=== PATIENT | female | born 1980 | race Caucasian/White ===

== ENCOUNTER → 2018-06-15 10:57 | Outpatient (CLI) | payer OTHER, SELFPAY ==
--- NOTE | 2018-06-15 11:03 | US_ITS ---
US breast RT complete, US breast LT complete Ordering Physician: [facility] Patient Age: 37 years: Female HISTORY: ITS.REASON: SCARLET BREAST CYST areas palpated by doctor bilateral TECHNIQUE: Ultrasound both right and left breast at the axillary survey COMPARISON :No previous studies ========= RIGHT BREAST ULTRASOUND including axillary survey Survey of the entire right breast including axilla reveals no cyst nor solid nodule. No architectural distortion. No areas of concern Moderately dense breast pattern observed.A few Minimal benign axillary lymph nodes observed ======== LEFT BREAST ULTRASOUND including axillary survey Survey of the entire left breast including axilla reveals no cyst nor solid nodule. No architectural distortion. But no areas of concern Moderately dense breast pattern observed. A few Minimal benign axillary lymph nodes observed IMPRESSION: Ultrasound survey of both breasts performed and reveal No Areas of Concern. No cyst or solid nodule no architectural distortion evident either breast BI-RADS Category: 1 Negative RECOMMENDED FOLLOW-UP: 1YR - 1 YEAR FOLLOW-UP (Only ultrasound performed today. No mammography and no previous mammograms... May want to consider obtained baseline mammography within the next year in this 37-year-old particularly if concern persists clinically) (A letter has been sent to the patient regarding results of the study.)
== END ==
PROVIDERS: PCP Internal Medicine Adolescent Medicine; Visit Provider Internal Medicine Adolescent Medicine
DX: N63.10 Unspecified lump in the right breast, unspecified quadrant (principal); N63.20 Unspecified lump in the left breast, unspecified quadrant
CPT/HCPCS: 76641

== ENCOUNTER → 2018-07-05 09:01 | Outpatient (CLI) | payer OTHER, SELFPAY ==
--- NOTE | 2018-07-05 09:02 | MM_ITS ---
MM Dig screening mamm BI w/CAD CAD Screening COMPARISON: None, this is baseline INDICATION: There is no personal or family history of breast cancer TECHNIQUE: Standard CC and MLO images were obtained. R2 CAD reviewed. FINDINGS: Scattered fibroglandular densities are seen throughout both breast. There is no suspicious lesion and there are no suspicious microcalcifications. There is a mole marker right breast. IMPRESSION: Fibrofatty parenchyma no suspicious lesion seen BI-RADS Category: 1 Negative RECOMMENDED FOLLOW-UP: 1YR - 1 YEAR FOLLOW-UP (A letter has been sent to the patient regarding results of the study.)
== END ==
PROVIDERS: PCP Surgery; Visit Provider Surgery
DX: Z12.31 Encounter for screening mammogram for malignant neoplasm of breast (principal); N63.0 Unspecified lump in unspecified breast
CPT/HCPCS: 77067

== ENCOUNTER → 2019-04-26 10:46 | Outpatient (CLI) | payer BC, SELFPAY ==
--- NOTE | 2019-04-26 10:49 | US_ITS ---
PROCEDURE: US THYROID CLINICAL INDICATION: HYPERCALCEMIA The dysphagia COMPARISON: No exams were available for comparison FINDINGS: Right lobe: 4.1 x 1.0 x 1.8 cm. There is a 5 mm slightly hypoechoic nodule in the upper pole. Posterior to the right lower pole there is a 1 x 0.4 cm area of decreased echogenicity which may be due to a parathyroid gland. Left lobe: 3.3 x 0.9 x 1.5 cm. No nodule or other significant anomaly. Isthmus: 3 mm in thickness Additional findings: IMPRESSION: Benign-appearing nodule in the upper pole of the right lobe of the thyroid gland at 5 mm. Possible mildly enlarged parathyroid gland posterior to the right thyroid lobe inferiorly Dictated by: Tray Zimmerman MD 04/26/2019 16:31 Electronically signed by Tray Zimmerman MD in [place] 04/26/2019 16:31
== END ==
PROVIDERS: PCP Nurse Practitioner Family; Visit Provider Nurse Practitioner Family
DX: E83.52 Hypercalcemia (principal)
CPT/HCPCS: 76536

== ENCOUNTER → 2019-06-08 09:29 | Outpatient (CLI) | payer BC, SELFPAY ==
--- NOTE | 2019-06-08 09:34 | FL_ITS ---
PROCEDURE: FL BARIUM SWALLOW CLINICAL INDICATION: DYSPHAGIA COMPARISON: No exams were available for comparison TECHNIQUE: In the upright position the patient was observed to swallow barium in both the AP and lateral view. The cervical esophagus was examined under fluoroscopy with images obtained. The patient was then placed prone in the right anterior oblique position and was observed to swallow barium with Valsalva technique . FLUOROSCOPY TIME: 48 seconds FINDINGS: There was no evidence of aspiration. There was normal peristalsis. No filling defects or mucosal abnormalities. No masses or strictures. No hiatal hernia. No reflux. There was delay in initiation of the swallowing mechanism. IMPRESSION: Delay in initiation of the swallowing mechanism otherwise negative barium swallow Dictated by: Tray Zimmerman MD 06/08/2019 18:15 Electronically signed by Tray Zimmerman MD in [place] 06/08/2019 18:15
== END ==
LOC: RAD 09:32
PROVIDERS: PCP Nurse Practitioner Family; Visit Provider Nurse Practitioner Family
DX: R13.10 Dysphagia, unspecified (principal)
CPT/HCPCS: 74220

== ENCOUNTER 2024-03-17 08:54 | Emergency (ER) | payer BC, SELFPAY ==
[2024-03-17] VITALS (9 sets, daily range): BP systolic 106–164; BP diastolic 71–104; PULSE 59–91; RESP 18–22; TEMP 36.7–36.8; O2SAT 97–99; BMI 23.3
--- NOTE | 2024-03-17 09:02 | ECG_ITS ---
APPROVED REPORT Exam: Resting ECG HR:81 bpm ECG Measurements Heart Rate 81 AXES UT 148 P 76 QRSd 87 QRS 64 QT 361 T 67 QTc 399 Conclusion Sinus rhythm Electronically signed by : KATELYN ROSARIO, 03/17/2024 15:10:50
--- NOTE | 2024-03-17 09:11 | XR_ITS ---
PROCEDURE INFORMATION: Exam: XR Chest Exam date and time: 03/17/2024 9:37 AM Age: 43 years old Clinical indication: Pain; Chest pressure; Additional info: Palpiations, SOA TECHNIQUE: Imaging protocol: Radiologic exam of the chest. Views: 1 view. COMPARISON: No relevant prior studies available. FINDINGS: Lungs: Unremarkable. No consolidation. Pleural spaces: Unremarkable. No pleural effusion. No pneumothorax. Heart/Mediastinum: Unremarkable. No cardiomegaly. Bones/joints: Unremarkable. IMPRESSION: No acute cardiopulmonary process.
[2024-03-17] MEDS: LACTATED RINGERS 1000ML 1,000 ML 999 ML IV (09:18)
--- NOTE | 2024-03-17 09:20 | ED_ITS ---
Discharge Plan Disposition Patient Disposition: Home, Self-Care Chief Complaint: Arrhythmia/Palpitations Prescriptions Prescriptions: No Action norgestimate-ethinyl estradiol [Ortho Tri-Cyclen LO (28)] 0.18/0.215/0.25 mg- 25 mcg tablet 1 tab PO DAILY omeprazole magnesium 20 MG tablet,delayed release (DR/EC) 20 mg PO DAILY Referrals Follow up/Referrals: Katelyn Flood [Primary Care Provider] - See instructions Zechariah Ayala MD [Staff Physician] - See instructions Activity Restrictions/Add. Instructions Additional Instructions/Restrictions: Follow-up with cardiology and your family doctor regarding this visit to the emergency department within 48 hours to ensure improvement. If you have any worsening of your condition or any other concerning signs or symptoms, return to the emergency department or your primary care doctor for further evaluation. Clinical Impressions Clinical Impression: Heart palpitations, Lightheadedness Print Language Print Language: Argentine Discharge ED Provider: Dmitry Aranda General Adult HPI General Chief complaint: Arrhythmia/Palpitations Stated complaint: soa, dizzy, fast heart rate Time Seen by Provider: 03/17/24 08:57 Mode of Arrival: Ambulatory Source of Information: Patient Limitations: No Limitations Description of Symptoms (Recalled from ER Triage Doc. by RN): heart palpatations,short of breath,anxious History of Present Illness HPI narrative: Please note that above description of symptoms, in this electronic medical record under categorization of recalled from ER triage doctor by RN are reflective of an initial nursing assessment, however, is not reflective of my full history and physical exam that was personally taken and clarified. Consequentially, this preceding description of symptoms, which may include the patient's categorized chief complaint in the EMR, do not reflect my personal clinical impression, and the ultimate description of history of present illness and patient stated complaints should be deferred to this section of the note. Unless stated otherwise or congruent with this section of the note, additional signs, symptoms, or incongruence should be interpreted as inaccurate with my clinical impression. Related Data Home Medications ?Medication ?Instructions ?Recorded ?Confirmed norgestimate 0.18 mg/0.215 mg/0.25 1 tab PO DAILY control 06/26/18 07/14/18 mg-ethinyl estradiol 25 mcg tablet (Ortho Tri-Cyclen LO (28)) omeprazole magnesium 20 mg 20 mg PO DAILY Supplement 05/07/19 05/07/19 tablet,delayed release Allergies Allergy/AdvReac Type Severity Reaction Status Date / Time Penicillins Allergy Unknown Verified 05/07/19 12:46 promethazine [From Phenergan] Allergy Unknown Verified 05/07/19 12:46 PFSH [facility] Disclaimer: The information contained in this section may have been updated after the patient was seen, as this information can be updated by other users. Social History Smoking Status: Current every day smoker tobacco type: cigarettes packs per day: 1 alcohol intake: never substance use type: denies use current occupational status: employed Travel in the last 8 weeks: None household members: spouse and children housing: apartment current occupational exposures/hazards: No caffeine: Yes ROS Obtained: Yes All systems reviewed & no additional complaints except as documented Physical Exam General General appearance: alert and anxious (Mildly) Head Head exam: atraumatic and normocephalic Eye Eye exam: Present normal appearance, PERRL and EOMI Neck Neck exam: Present normal inspection, full ROM and trachea midline Respiratory Respiratory exam: Present normal lung sounds bilaterally; Absent respiratory distress, wheezes, stridor, accessory muscle use or prolonged expiratory phase Cardiovascular Cardiovascular exam: Present regular rate, normal rhythm and other (Pulses equal symmetric in upper and lower extremities) Abdominal Exam Abdominal exam: Present soft; Absent distention, tenderness, guarding, rebound, rigidity or pulsatile mass Extremities Exam Extremities exam: Present other (Pulses equal and symmetric in uppers and lowers); Absent edema Neurological Exam Neurological exam: Present alert, oriented X3, CN II-XII intact and normal gait; Absent motor sensory deficit Skin Skin exam: Present warm and dry; Absent diaphoresis or erythema Medical Decision Making Medical Records Medical records reviewed: Yes I reviewed the patient's medical records. Screening: Per USPSTF and CDC recommendations, given the prevalence of disease in our region, it is our hospital?s policy to screen for HIV and viral Hepatitis for all patients aged 18 and over and those with ongoing risk factors. Markell Inquiry Pt receiving controlled substance: No Markell was queried for this patient: No Vital Signs: 03/17/24 08:56 03/17/24 08:59 03/17/24 09:00 Temperature 98.1 F Temperature Source Oral Pulse Rate 84 88 Pulse Rate [Right] 91 H Respiratory Rate 20 Blood Pressure 164/104 H 138/97 H Blood Pressure [Right Arm] 138/97 H Blood Pressure Mean Blood Pressure Mean [Right Arm] 110 02 Sat by Pulse Oximetry 98 99 99 Oxygen Delivery Method Room Air 03/17/24 09:15 03/17/24 09:30 03/17/24 10:00 Temperature Temperature Source Pulse Rate 71 65 71 Pulse Rate [Right] Respiratory Rate 20 22 Blood Pressure 108/78 L 123/81 Blood Pressure [Right Arm] Blood Pressure Mean Blood Pressure Mean [Right Arm] 02 Sat by Pulse Oximetry 99 99 99 Oxygen Delivery Method Room Air Room Air 03/17/24 10:30 03/17/24 11:00 Temperature Temperature Source Pulse Rate 60 59 L Pulse Rate [Right] Respiratory Rate 20 20 Blood Pressure 117/79 106/71 L Blood Pressure [Right Arm] Blood Pressure Mean 82 Blood Pressure Mean [Right Arm] 02 Sat by Pulse Oximetry 99 98 Oxygen Delivery Method Room Air Lab Data Lab Results 03/17/24 09:01: WBC 9.4, RBC 4.86, Hgb 15.2, Hct 45.9, MCV 94.5, MCH 31.3 H, MCHC 33.2, RDW 13.1, Plt Count 212, MPV 8.7, Neut % (Auto) 73.0, Lymph % (Auto) 20.2, Summers % (Auto) 5.4, Eos % (Auto) 0.7, Baso % (Auto) 0.5, Neut # (Auto) 6.9, Lymph # (Auto) 1.9, Summers # (Auto) 0.5, Eos # (Auto) 0.1, Baso # (Auto) 0.1, D- Dimer 0.33, Sodium 136, Potassium 4.0, Chloride 107, Carbon Dioxide 26, Anion Gap 7.0, BUN 11, Creatinine 0.80, Estimated Creat Clear 93, Estimated GFR 79, Est GFR ( Amer) 96, Glucose 142 H, Calcium 9.1, Magnesium 1.9, Total Bilirubin 0.9, AST 25, ALT 17, Alkaline Phosphatase 54, Troponin I < 0.01, NT-Pro-B Natriuret Pep 84.8, Total Protein 6.9, Albumin 4.4, Globulin 2.5, Albumin/Globulin Ratio 1.8, TSH 1.42, Thyroxine (T4) 7.1, Serum HCG, Qual Negative, PTH Intact 83.7 H, HIV 1&2 Antibody Rapid Nonreactive 09/28/24 10:25: Urine Opiates Screen Negative, Urine Methadone Screen Negative, Ur Barbituates Screen Negative, Ur Phencyclidine Scrn Negative, Ur Amphetamines Screen Negative, U Benzodiazepines Scrn Negative, Urine Cocaine Screen Negative, U Marijuana (THC) Screen Negative 03/17/24 09:01 03/17/24 09:01 Orders (Tests/Meds): ED MEDICATIONS Discontinued Medications Generic Name Dose Route Start Last Admin Trade Name Sinan PRN Reason Stop Dose Admin Lactated Ringer's 1,000 mls @ 999 mls/hr 03/17/24 09:14 03/17/24 09:18 Lactated Ringer's 1000 Ml Bag IV 03/17/24 10:14 999 mls/hr .Q1H1M ONE Administration ORDERS Category Date Time Status CXR --portable [XR chest portable] Stat Exams 03/17/24 09:11 Completed CBC w/Auto Diff [Complete Blood Count Auto Diff] Stat Lab 03/17/24 09:01 Completed CMP [Comprehensive Metabolic Panel] Stat Lab 03/17/24 09:01 Completed D-Dimer Stat Lab 03/17/24 09:01 Completed HIV (1&2) Antibody Rapid Stat Lab 03/17/24 09:01 Completed Hep C Ab with Reflex to RNA Stat Lab 03/17/24 09:01 Received Intact Parathyroid Hormone Stat Lab 03/17/24 09:01 Completed Magnesium Stat Lab 03/17/24 09:01 Completed NT Pro Brain Natriuretic Pep. Stat Lab 03/17/24 09:01 Completed Serum [HCG Qualitative, Serum] Stat Lab 03/17/24 09:01 Completed T4 (Thyroxine) Stat Lab 03/17/24 09:01 Completed TSH [Thyroid Stimulating Hormone] Stat Lab 03/17/24 09:01 Completed Trop I [Troponin I] Stat Lab 03/17/24 09:01 Completed Troponin I Q3H Lab 03/17/24 12:15 Ordered Troponin I Q3H Lab 03/17/24 15:15 Ordered UDS [Drug Screen,Urine] Stat Lab 03/17/24 10:25 Completed Medical Decision Narrative: 43-year-old female history of smoking, recently quit currently on nicotine patch 21 mg daily, anxiety, abnormal uterine bleeding currently on combined OCP presenting with palpitations. Patient states that she has had palpitations for the past 2 days with associated shortness of breath. States that minimal exertion make shortness of breath and palpitations worse. Nonpositional. Not associated with cough, fevers, chills, chest pain, nausea or vomiting. She states that she stopped smoking about 2 days ago and has been using 21 mg patches since that time. She also states that she had leftover Lexapro from the past, which she started taking yesterday to see if it would help. Denies any other medication changes, travel, recent drug exposures, significant changes, or any other relevant history. Recently went to outside ED, full workup negative. Coming for second opinion. History was obtained via conversation with patient. On arrival, patient hemodynamically stable, alert, oriented x4, appropriate, GCS 15, moving all extremities spontaneously, pupils equal and reactive to light. Full physical exam performed and significant for mildly anxious appearing female who is in no acute distress. Speaking in full sentences, phonating appropriately. Vital signs all stable. Patient nontachycardic. Lungs are clear to auscultation bilaterally. Cardiac exam within normal limits without murmurs gallops or rubs, decreased heart sounds, etc. No lower extremity edema, pulses equal and symmetric in upper and lower extremities. Differential includes anxiety, metabolic abnormality, thyroid versus parathyroid abnormality, dehydration, acute blood loss anemia/symptomatic anemia, PE, ACS, IA, pneumothorax, intoxication, withdrawal, among other. Patient placed on continuous cardiac monitoring and continuous pulse ox with initial blood pressure 138/97, heart rate 91, saturation 98% on room air. Independent interpretation of EKG shows sinus rhythm with normal axis. No ST or T wave changes concerning for acute ischemia. MD 148, QRS 87, QTc 399. Patient was given 1 L fluid bolus for symptomatic management and correction of underlying abnormalities. Workup independently interpreted and significant for nonactionable CBC with normal hemoglobin. Dimer negative. Chemistry normal. Patient's troponin negative and BNP negative. TSH and T4 normal. PTH mildly elevated at 84, urine hCG negative. Urine tox screen negative. On independent interpretation of imaging, no acute cardiopulmonary space disease on chest x- ray. See radiology read for full review of final results. Heart score 0. Because patient at baseline without signs or symptoms of clinical decompensation, deemed appropriate for discharge. Results were relayed to patient who voiced understanding and were agreeable to outpatient management and follow up. I discussed my clinical impression with patient and answered all questions. At this time, the evidence for any other entities in the differential is insufficient to warrant any further testing or ED observation. This was explained as well. Advisory was given that persistent or worsening symptoms require further evaluation. I confirmed the understanding of this discussion. 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 Electronic cigarette packing machine operator of the spoken language may permit errors. Although I have reviewed the note, some errors may still exist. Critical Care Critical Care Time Critical Care Time: No
[2024-03-17 09:25] LABS: Basophils # 0.1 K/mm3 (0-0.2); Basophils % 0.5 % (0.1-2.0); Eosinophils # 0.1 K/mm3 (0.0-0.4); Eosinophils % 0.7 % (0.1-12.0); Hematocrit 45.9 % (37.0-47.0); Hemoglobin 15.2 g/dL (12.2-16.2); Lymphocytes # 1.9 K/mm3 (0.7-4.5); Lymphocytes % 20.2 % (10-50); Mean Corpuscular HGB Conc 33.2 g/dL (31.8-35.4); Mean Corpuscular Hemoglobin 31.3 pg (27.0-31.2); Mean Corpuscular Volume 94.5 fl (81-99); Mean Platelet Volume 8.7 fl (7.4-10.4); Monocytes # 0.5 K/mm3 (0.1-1.0); Monocytes % 5.4 % (1.7-9.3); Neutrophils # 6.9 K/mm3 (1.8-7.8); Platelet Count 212 K/mm3 (142-424); Red Blood Count 4.86 M/mm3 (4.20-5.40); Red Cell Distribution Width 13.1 % (11.5-17.5); White Blood Count 9.4 K/mm3 (4.8-10.8)
[2024-03-17 09:33] LABS: HCG Qualitative, Serum Negative (Negative)
[2024-03-17 09:35] LABS: Magnesium 1.9 mg/dl (1.6-2.3)
[2024-03-17 09:36] LABS: Alanine Aminotransferase 17 U/L (12-78); Albumin Level 4.4 g/dl (3.5-5.0); Albumin/Globulin Ratio 1.8 (1.1-1.8); Alkaline Phosphatase 54 U/L (38-126); Aspartate Amino Transferase 25 U/L (14-36); Bilirubin,Total 0.9 mg/dl (0.2-1.3); Blood Urea Nitrogen 11 mg/dl (7-17); Calcium 9.1 mg/dl (8.4-10.2); Carbon Dioxide 26 mmol/L (22.0-30.0); Chloride 107 mmol/L (98-107); Creatinine Clearance Estimated 93 mL/min (50-200); Estimated Glomerular Filt Rate 79 ml/min (>60); GFR (African American) 96 ML/MIN (>60); Globulin 2.5 g/dL (1.3-3.2); Glucose 142 mg/dl (74-100); Sodium 136 mmol/L (136-145); Total Protein,Serum 6.9 g/dl (6.3-8.2)
[2024-03-17 09:41] LABS: D-Dimer 0.33 ug/mL (0.0-0.5)
[2024-03-17 09:47] LABS: NT Pro Brain Natriuretic Pep. 84.8 pg/mL (0-125)
[2024-03-17 09:48] LABS: Intact Parathyroid Hormone 83.7 pg/mL (7.5-53.5)
[2024-03-17 09:52] LABS: T4 (Thyroxine) 7.1 ug/dl (5.53-11.0)
[2024-03-17 10:06] LABS: Thyroid Stimulating Hormone 1.42 uIU/mL (0.465-4.68)
[2024-03-17 10:20] LABS: Troponin I < 0.01 ng/ml (0.00-0.034)
--- NOTE | 2024-03-17 10:32 | PC.NURSE ---
rounded on pt, warm blanket and pillow provided. no needs at this time. call light within reach
[2024-03-17 10:39] LABS: HIV (1&2) Antibody Rapid NONREACTIVE (NONREACTIVE)
[2024-03-17 11:04] LABS: Barbiturates Screen,Urine Negative ng/ml (<200)
[2024-03-17 11:05] LABS: Benzodiazepines Screen,Urine Negative ng/ml (<200)
[2024-03-17 11:06] LABS: Amphetamine/Metha Screen,Urine Negative ng/ml (<1000); Cannabinoid Screen,Urine Negative ng/ml (<50)
[2024-03-17 11:07] LABS: Cocaine Screen,Urine Negative ng/ml (<300); Methadone Screen,Urine Negative ng/ml (<300)
[2024-03-17 11:08] LABS: Opiate Screen,Urine Negative ng/ml (<300)
[2024-03-17 11:09] LABS: Phencyclidine Screen,Urine Negative ng/ml (<25)
--- NOTE | 2024-03-17 11:46 | PC.NURSE ---
DR ROSARIO AT BEDSIDE TO UPDATE PT
[2024-03-18 08:11] LABS: HCV Ab Non Reactive (Non Reactive)
== END 2024-03-17 11:53 | disposition home or self-care (01) ==
PROVIDERS: Emergency Provider Emergency Medicine; PCP Nurse Practitioner Family
DX: R00.2 Palpitations (principal); R42 Dizziness and giddiness; F41.9 Anxiety disorder, unspecified
CPT/HCPCS: 71045; 80050; 80053; 80307; 83735; 83880; 83970; 84436; 84443; 84484; 84703; 85025; 85378; 86803; 87389; 93005; 96360; 99284; J7120

== ENCOUNTER 2024-03-26 09:53 | Outpatient (CLI) | payer BC, SELFPAY | END 2024-03-26 23:59 | disposition home or self-care (01) | LOC: RT 09:54 | PROVIDERS: PCP Nurse Practitioner Family; Visit Provider Nurse Practitioner Family | DX: R00.2 Palpitations (principal); R06.09 Other forms of dyspnea; R07.89 Other chest pain; R94.31 Abnormal electrocardiogram [ECG] [EKG] | CPT/HCPCS: 93270 ==

== ENCOUNTER 2024-04-03 09:52 | Outpatient (CLI) | payer BC, SELFPAY ==
--- NOTE | 2024-04-03 12:06 | CA_ITS ---
APPROVED REPORT Exam: Exercise Treadmill Technologist: Amaris Mixon Ht: 5 ft 5 in Wt: 140 lbs BSA: 1.70 m2 HR: 72 bpm BP: 140/64 mmHg Indications: Chest pain Stress Test Details Test: Castro HR Resting HR: 72 bpm Max Heart Rate (APMHR): 179 bpm Max HR Achieved: 170 bpm Target HR (85% APMHR): 152 bpm % of APMHR: 95 Recovery HR: 100 bpm BP Resting BP: 140.0/64.0 mmHg Max BP: 160.0/80.0 mmHg Recovery BP: 146.0/69.0 mmHg ECG Resting ECG: Sinus rhythm Stress EC.[address] depression Arrhythmia: None Clinical Exercise duration: 10:00 min Highest Stage Achieved: Exercise capacity: 12.8 METs Stress ECG Conclusion Symptoms: Dyspnea, leg fatigue Arrhythmias/Ectopy: PVC ST-T Changes: 0.[address] depression Conclusion: Normal EKG response to exercise. If clinical symptoms persist, further evaluation with alternative imaging modalities is recommended, in the setting of being intermediate (i.e. now low) likelihood of CAD due to age. Test Summary REST . . . . . . . Resting REST 01:54 0.0 0.0 72 . 140/ 64 . . Stage 1 01:00 10.0 1.7 100 . . . . Stage 1 02:00 10.0 1.7 115 . . . . Stage 1 03:00 10.0 1.7 117 . 150/ 70 . . Stage 2 01:00 12.0 2.5 130 . . . . Stage 2 02:00 12.0 2.5 138 . . . . Stage 2 03:00 12.0 2.5 140 . 160/ 80 . . Stage 3 01:00 14.0 3.4 149 . . . . Stage 3 02:00 14.0 3.4 155 . . . . Stage 3 03:00 14.0 3.4 157 . 160/ 80 . . Stage 4 01:00 16.0 4.2 169 . . . Stop exercise at 10:00 RECOVERY 01:00 0.0 0.0 155 . 160/ 60 . . RECOVERY 02:00 0.0 0.0 132 . 160/ 60 . . RECOVERY 03:00 0.0 0.0 111 . 151/ 66 . . RECOVERY 04:00 0.0 0.0 108 . 145/ 73 . . RECOVERY 05:00 0.0 0.0 100 . 145/ 73 . . RECOVERY 05:50 0.0 0.0 100 . 146/ 69 . . Electronically signed by : Ciara Pratt MD 04/12/2024 13:07:16
== END 2024-04-03 23:59 | disposition home or self-care (01) ==
LOC: RT 09:54
PROVIDERS: PCP Nurse Practitioner Family; Visit Provider Nurse Practitioner Family
DX: R06.09 Other forms of dyspnea (principal); R07.89 Other chest pain; R00.2 Palpitations; R94.31 Abnormal electrocardiogram [ECG] [EKG]
CPT/HCPCS: 93017; 93018

== ENCOUNTER 2024-04-06 09:28 | Outpatient (CLI) | payer BC, SELFPAY ==
--- NOTE | 2024-04-06 09:30 | CA_ITS ---
APPROVED REPORT EXAM: Comprehensive 2D, Doppler, and color-flow Echocardiogram Material Control Associate: Mitzi Fletcher RDCS Ht: 5 ft 5 in Wt: 140lbs BSA: 1.70 BP: 132/77 mmHg Indications: CP,ABN EKG,AMOKER,CAMEJO M-Mode Dimensions RVDd 1.92 cm (0.9-2.6) LA Diam 3.17 cm (1.9-4.0) LVDd 4.86 cm (3.5-5.7) LVDs 3.59 cm (3.5-5.7) IVSd 0.59 cm (0.6-1.1) PWd 0.62 cm (0.6-1.1) EF (Teich) 51.10% FS 26.10% EDV (Teich) 110.70 mL ESV (Teich) 54.10 mL LV Diastology E Decel Time 233 (160-240 msec) E/A Ratio 1.4 Mitral Valve MV E Max Dong. 69.0 (40-130 cm/s) MV A Velocity 48.0 (40-130 cm/s) E/A Ratio 1.42 MV PHT 68.0 ms Left Ventricle The left ventricle is normal size. The left ventricular systolic function is normal. The left ventricular ejection fraction is within the normal range. There is normal left ventricular wall thickness. There is normal LV segmental wall motion. The left ventricular diastolic function is normal. LVEF is 55%. Right Ventricle The right ventricle is normal size. The right ventricular systolic function is normal. Atria The left atrium size is normal. The right atrium size is normal. The interatrial septum is not evaluated with color Doppler in the study. Aortic Valve The aortic valve opens well. There is no aortic valvular stenosis. No aortic regurgitation is present. Mitral Valve The mitral valve is normal in structure. No evidence of mitral valve stenosis. Trace mitral regurgitation. Tricuspid Valve The mitral valve leaflets are thin and pliable. Trace tricuspid regurgitation. There is insufficient TR jet to estimate RVSP. Pulmonic Valve The pulmonary valve is normal in structure. Trace pulmonic regurgitation. Great Vessels The aortic root is normal in size. The ascending aorta is normal in size. IVC is normal in size and collapses >50% with inspiration. Pericardium There is no pericardial effusion. Other Information Study Quality: Adequate Conclusion Normal biventricular systolic function. No significant valvular stenosis or regurgitation. Electronically signed by : Ciara Pratt MD 04/09/2024 13:43:05
== END 2024-04-06 23:59 | disposition home or self-care (01) ==
LOC: RT 09:28
PROVIDERS: PCP Nurse Practitioner Family; Visit Provider Nurse Practitioner Family
DX: R06.09 Other forms of dyspnea (principal); R07.89 Other chest pain; R94.31 Abnormal electrocardiogram [ECG] [EKG]; R00.2 Palpitations
CPT/HCPCS: 93306